=== PATIENT | male | born 1950 | race Caucasian/White ===

== ENCOUNTER 2019-05-23 14:31 | Emergency (ER) | payer MEDICARE ==
[~2019-05-23] VITALS: Ht 180.3 cm; Wt 111.0 kg
[~2019-05-23 14:31] MED LIST: CARI350T PO; CYCL-1 PO; DIAZ5TAB PO; HYDR-4383 PO
[2019-05-23 15:01] VITALS: BP 105/69
[2019-05-23] MEDS ORDERED: HYDR-4353 PO (16:34)
== END 2019-05-23 17:29 | disposition home or self-care (01) ==
LOC: ER 14:32
DX: G89.29 Other chronic pain (principal); M54.5 Low back pain; M25.561 Pain in right knee; Z76.0 Encounter for issue of repeat prescription; Z88.6 Allergy status to analgesic agent; Z79.899 Other long term (current) drug therapy
CPT/HCPCS: 99283

== ENCOUNTER 2019-09-16 09:00 | Outpatient (CLI) | payer OTHER ==
[2019-09-16 10:13] LABS: EOSINOPHILS # (AUTO) 0.3 X10'3 (0-0.9); NEUTROPHILS # (AUTO) 6.9 X10'3 (1.8-7.7)
[2019-09-16 10:14] LABS: BASOPHILS % (AUTO) 0.5 % (0-1); HEMATOCRIT 50.8 % (42.0-52.0); LYMPHOCYTES % (AUTO) 20.4 % (21-51); MEAN CORPUSCULAR HGB CONC 33.6 g/dL (33.0-36.5); MEAN CORPUSCULAR VOLUME 92.4 FL (78-98); MEAN PLATELET VOLUME 10.1 FL (7.4-10.4); MONOCYTES # (AUTO) 0.6 X10'3 (0-0.9); MONOCYTES % (AUTO) 6.4 % (2-12); NEUTROPHILS % (AUTO) 69.7 % (42-75); PLATELET COUNT 177 X10'3 (140-440); RED BLOOD COUNT 5.49 X10'6 (4.70-6.10); RED CELL DISTRIBUTION WIDTH 13.3 % (11.5-14.5); WHITE BLOOD COUNT 9.9 X10'3 (4.5-11.0)
[2019-09-16 10:28] LABS: PARTIAL THROMBOPLASTIN TIME 38 SECONDS (22-32)
[2019-09-16 14:53] LABS: ALBUMIN 3.6 G/DL (3.4-5.0); ANION GAP 10 (8-16); BLOOD UREA NITROGEN 19 MG/DL (7-18); CALCIUM 9.1 MG/DL (8.5-10.1); CHLORIDE 107 MMOL/L (99-107); CREATININE 1.27 MG/DL (0.60-1.10); GLUCOSE 123 MG/DL (70-104); POTASSIUM 4.4 MMOL/L (3.5-5.1); SODIUM 144 MMOL/L (135-145); TOTAL CARBON DIOXIDE 27.4 MMOL/L (24-32); eGFR 56 ML/MIN
== END 2019-09-16 23:59 | disposition home or self-care (01) ==
LOC: SSTAY O 09:00 → EDSTATUS 09-23 18:30
PROVIDERS: ATTEND Internal Medicine Interventional Cardiology
DX: Z01.810 Encounter for preprocedural cardiovascular examination (principal); I48.91 Unspecified atrial fibrillation; I10 Essential (primary) hypertension; E78.5 Hyperlipidemia, unspecified; G47.33 Obstructive sleep apnea (adult) (pediatric); Z68.37 Body mass index [BMI] 37.0-37.9, adult
CPT/HCPCS: 36415; 80048; 85025; 85610; 85730

== ENCOUNTER 2019-10-13 14:21 | Day surgery (SDC) | payer OTHER ==
[2019-10-13] VITALS (9 sets, daily range): BP systolic 108–140; BP diastolic 61–98
[~2019-10-13] VITALS: Ht 175.3 cm; Wt 125.6 kg
[2019-10-13] MEDS ORDERED: fentaNYL/PF 50MCG/1 ML 2ML syringe IV ONE (14:55)
[2019-10-13] MEDS ORDERED: MIDAZolam 1mg/ml 10ml vial IV ONE (14:55)
[2019-10-13] MEDS ORDERED: normal saline 1000ml 1,000 ML IV SCH (14:55)
[2019-10-13] MEDS ORDERED: PARO30TA4 PO (16:00)
[2019-10-13] MEDS ORDERED: METO25TA6 PO (16:00)
[2019-10-13] MEDS ORDERED: ATOR20TA PO (16:00)
[2019-10-13] MEDS ORDERED: PROP10TA10 PO (16:00)
[2019-10-13] MEDS ORDERED: BUPR100T16 PO (16:00)
[2019-10-13] MEDS ORDERED: CHOL50004 PO (16:00)
[2019-10-13] MEDS ORDERED: LIT300C PO (16:00)
[2019-10-13] MEDS ORDERED: DABI75CA3 PO (16:00)
== END 2019-10-13 18:30 | disposition home or self-care (01) ==
LOC: SSTAY O 14:21
PROVIDERS: ATTEND Internal Medicine Interventional Cardiology
DX: I48.19 Other persistent atrial fibrillation (principal); I10 Essential (primary) hypertension; E66.9 Obesity, unspecified
CPT/HCPCS: 92960; 93005; J2250; J3010; J7030